=== PATIENT | male | born 1985 | race Caucasian/White ===

== ENCOUNTER 2018-04-17 13:47 | Day surgery (SDC) | payer BC ==
[2018-04-17] MEDS ORDERED: MIDAZOLAM 1 MG/ML 2 ML INJ IV (17:00)
[2018-04-17] MEDS ORDERED: DIPHENHYDRAMINE 50 MG INJ IV (17:00)
[2018-04-17] MEDS ORDERED: MEPERIDINE 25 MG INJ IV (17:00)
[2018-04-17] MEDS ORDERED: OXYCODONE/ACETAMINOPHEN (5/325) TAB PO ×2 (17:00)
[2018-04-17] MEDS ORDERED: ONDANSETRON 4 MG INJ IV (17:00)
[2018-04-17] MEDS ORDERED: FENTAnyl 50 MCG/ML VIAL IV ×2 (17:00)
[2018-04-17] MEDS ORDERED: SUCCINYLCHOLINE CHLORIDE 100 MG/5 ML SYG IV (17:06)
[2018-04-17] MEDS ORDERED: PROPOFOL 20 ML (17:06)
[2018-04-17] MEDS ORDERED: MEPERIDINE 100 MG INJ (17:06)
[2018-04-17] MEDS ORDERED: LIDOCAINE 2% (SDV) 5 ML INJ (17:06)
[2018-04-17] MEDS ORDERED: ROCURONIUM 50 MG INJ (17:06)
[2018-04-17] MEDS ORDERED: NEOSTIGMINE 3 MG/3 ML SYRINGE ×2 (17:06→17:31)
[2018-04-17] MEDS ORDERED: GLYCOPYRROLATE 0.4 MG INJ ×2 (17:06→17:31)
[2018-04-17] MEDS: LIDOCAINE 1%/EPI 30 ML INJ (17:26)
[2018-04-17] MEDS: COCAINE 4% 4 ML TOP (17:26)
[2018-04-17] MEDS ORDERED: CEFAZOLIN 1 GM INJ (17:30)
[2018-04-17] MEDS ORDERED: BACITRACIN/POLYMYXIN 28.35 GM OINT TOP (17:49)
[2018-04-17] MEDS ORDERED: NEOMYC/POLYMYX/BACIT 30 GM OINT (17:49)
[2018-04-17] MEDS ORDERED: HYDROCODONE/APAP (5/325) TAB PO (18:00)
[2018-04-17] MEDS: FENTAnyl 50 MCG/ML VIAL IV (19:13)
[2018-04-17] MEDS: METOCLOPRAMIDE 10 MG INJ IV ×2 (19:14)
== END 2018-04-17 20:03 | disposition home or self-care (01) ==
LOC: SDS 13:47
DX: M95.0 Acquired deformity of nose (principal); R09.81 Nasal congestion
CPT/HCPCS: 30140